=== PATIENT | female | born 1965 | race Caucasian/White ===

== ENCOUNTER 2017-10-09 00:42 | Day surgery (SDC) | payer MEDICAID ==
[2015-11-27 15:57] VITALS: Ht 165.1 cm; Wt 57.2 kg
[~2017-10-09] VITALS: Ht 165.1 cm; Wt 57.2 kg
[~2017-10-09 00:42] MED LIST: ALB18R INH; CIPR-344 PO; CIT20 PO; CITA-155 PO; CITA-156 PO; CITA10SO7 PO; COUGH; GOLYTE PO; HYDR-4309 PO; HYDR25SU34 RC; LEVO750T27 PO; LOR5/325 PO; METH-543 PO; MULT-1335 PO; MULT1TAB64 PO; NAPR-1043 PO; NAPR220C12 PO; OMEP-137 PO; OMEP-218 PO; ONDA4TAB9 PO; PER PO; PRE20 PO; PROM-110 PO; PROM25S PR; RAN150 PO; RANI-315 PO; RANI-324 PO; TRAM-420 PO; TRAZ-133 PO; ZOLM2.5 PO
[2017-10-09] MEDS ORDERED: NORMOSOL R SOLN(*) 1000 ML BAG 1,000 ML IV PRN (09:05)
[2017-10-09] MEDS ORDERED: MIDAZOLAM 2 MG/2 ML VIAL IVP PRN (09:05)
[2017-10-09] MEDS ORDERED: LIDOCAINE/SOD BICARB 8.4% SYR ID ONE (09:05)
[2017-10-09] MEDS: FAMOTIDINE 20 MG TAB PO ONE ×2 (09:05→12:37)
[2017-10-09] MEDS ORDERED: fentaNYL CITR 100 MCG/2 ML AMP ONE (12:13)
[2017-10-09] MEDS ORDERED: ONDANSETRON 4 MG/2 ML VIAL ONE (12:13)
[2017-10-09] MEDS ORDERED: DEXAMETHASONE SOD 4 MG/ML VIAL ONE (12:13)
[2017-10-09] MEDS ORDERED: LIDOCAINE MPF 1% 5 ML VIAL ONE ×2 (12:13→14:19)
[2017-10-09] MEDS ORDERED: PROPOFOL EMUL(*) 10MG/ML 20 ML 20 ML ONE ×3 (12:13→14:19)
[2017-10-09 12:34] VITALS: BP 131/76
[2017-10-09 12:50] LABS: PLATELET COUNT, AUTOMATED 191 K/uL (150-450)
[2017-10-09] MEDS ORDERED: ROPIVACAINE 0.5% 20 ML VIAL ONE (13:36)
[2017-10-09] MEDS ORDERED: GELATIN SPONGE SZ 100 ONE (13:37)
[2017-10-09] MEDS ORDERED: KETAMINE HCL 200 MG/20 ML MDV ONE (14:00)
[2017-10-09] MEDS ORDERED: DOCU-416 PO (14:46)
[2017-10-09] MEDS ORDERED: OXYC-854 PO (14:46)
--- NOTE | 2017-10-09 14:51 | Short(Outpt) Discharge Summary ---
Discharge Summary Reason for Hosp/Final Diag: (1) Anal fissure Status: Chronic Hospital Course & Plan: Colonoscopy, LIS, and anal skin tag excision completed without problems. (2) Skin tag of anus Status: Chronic (3) Family history of colorectal cancer Departure Discharge to: Home, Self Care Discharge Instructions Home Meds Active Scripts Docusate Sodium (COLACE) 100 Mg Capsule, 1 CAP PO BID, #30 CAPSULE 0 Refills Prov:REJI MCCARTHY MD 10/09/17 Oxycodone Hcl/Acet 5/325 Mg (ENDOCET 5-325 TABLET) 1 Each Tablet, 1-2 TAB PO Q4H Y for PAIN, #30 TAB 0 Refills Prov:REJI MCCARTHY MD 10/09/17 Peg/Electrolytes (GOLYTELY SOLUTION) 4,000 Ml Soln, 1 GAL PO ONCE, #1 GAL 0 Refills Prov:REJI MCCARTHY MD 09/19/17 Reported Medications Ranitidine Hcl (ZANTAC) 150 Mg Tablet, 150 MG PO BID, TAB 09/19/17 Omeprazole (OMEPRAZOLE) 20 Mg Tablet.dr, 20 MG PO QDAY, TAB 09/19/17 Albuterol Sulfate (VENTOLIN HFA) 18 Gm Inh, 2 PUFF INH Q4-6H Y for SHORTNESS OF BREATH, INH 09/19/17 Naproxen Sodium (ALEVE) 220 Mg Capsule, 220 MG PO BID, CAPSULE 09/19/17 Multivitamin (MULTI VITAMIN DAILY) 1 Each Tablet, 1 EACH PO QDAY, TAB 09/19/17 Citalopram Hydrobromide (CELEXA) 10 Mg Tablet, 5 MG PO QDAY, #5 TAB 09/19/17 Discontinued Reported Medications Promethazine Hcl (PROMETHAZINE HCL) 25 Mg Tablet, 25 MG PO Q4H Y for NAUSEA/ VOMITING, TAB 09/19/17 Hydrocortisone Acetate (HYDROCORTISONE ACETATE) 25 Mg Supp.rect, 25 MG RC TID, SUPP.RECT 09/19/17 Follow up Referrals: General Surgery - 10/28/17 @ Surgery, General with Reji Mccarthy Md You have a follow up appointment scheduled with Dr. Mccarthy on 10/28/17, at 3:45pm. Diet: Regular Activity: As Tolerated Special Instructions: There is a roll of foam tucked in your anal canal to help with bleeding from the incisions. This will come out usually in the next 24-48 hours after surgery and will look like bloody foam and blood clots in the toilet; this is to be expected. You can take hot baths to help sooth your bottom and use the pain medication I've prescribed as needed for anal pain but be aware that it can cause (or make worse) constipation. Take the stool softener twice every day until your bowels are back to normal and you no longer require the pain medication. You can noris use aleve OR ibuprofen for additional pain relief. REJI MCCARTHY MD Oct 09, 2017 14:51
--- NOTE | 2017-10-09 14:57 | Post Operative Progress Note ---
Post Operative Progress Note Date: Oct 09, 2017 Time: 14:51 Surgeon: Marissa Dictation number: [id number] Anesthesia: LMA by Dr. Mcginnis Pre-Op Diagnosis: FH CRC Anal fissure Anal skin tags Post-Op Diagnosis: MILLIE Findings: C/W dx Normal colonoscopy, excellent prep Procedure(s): Colonoscopy LIS Excision of anal skin tags Specimen Removed:(May be N/A): None Complications: None Fluids: See anesthesia record Estimated Blood Loss: Minimal Date OP Note Dictated: Oct 09, 2017 Time OP Note Dictated: 14:52 REJI MCCARTHY MD Oct 09, 2017 14:57
[2017-10-09 15:27] VITALS: BP 126/86
[2017-10-09 15:29] VITALS: BP 145/90
--- NOTE | 2017-10-09 22:16 | OPERATIVE REPORT 1 ---
EVENT DATE: October 09, 2017 SURGEON: Jaskaran Ann MD ANESTHESIOLOGIST: Kd Mcginnis MD ANESTHESIA: LMA. PREOPERATIVE DIAGNOSES 1. Family history of colon cancer. 2. Anal fissure. 3. Anal skin tags. POSTOPERATIVE DIAGNOSES 1. Family history of colon cancer. 2. Anal fissure. 3. Anal skin tags. PROCEDURES PERFORMED 1. Colonoscopy. 2. Lateral internal sphincterotomy. 3. Excision of anal skin tags. COMPLICATIONS None. CONDITION Stable. BLOOD LOSS Minimal. FINDINGS This patient's colonoscopy was normal. The prep was excellent. There were no polyps, cancers, inflammation, or other abnormalities. She had a posterior midline anal fissure and posterior skin tags, likely related to the fissure. INDICATIONS This is a 52-year-old female who was referred to my office with chronic constipation and bright red blood per rectum as well as anal pain. She reported her father had colon cancer in his 60s. She never had a colonoscopy, so she was requesting a colonoscopy for screening in addition to the workup of her symptoms, but she was also requesting for me to look in her anus and determine the cause of her pain and bleeding and deal with it, which included as I described to her in clinic possibly an internal sphincterotomy and removal of the skin tags. DESCRIPTION OF PROCEDURE The patient was brought to the operating room and placed supine on the operating table. LMA anesthesia was administered. A digital rectal exam was completed which revealed the anal skin tags and the posterior fissure, but there was no gross blood and no other abnormalities. The colonoscope was set up and tested to make sure it was completely functional. It was well lubricated and inserted into the rectum through her anus. I advanced the scope with no problem all the way through to her cecum and also to the terminal ileum. I slowly withdrew the scope as I looked at all mucosal surfaces for any abnormalities. The prep was excellent, and I was able to look at the entire colon without any problems. When the scope was back in the rectum, I retroflexed it and looked at the distal rectum and the proximal anal canal, and this was normal. I then straightened out the scope, desufflated the colon, and removed the scope from her body. She was then placed in candy cane stirrups, and the perianal skin was prepped and draped in a sterile fashion. I then stuck an anal speculum in and felt the internal sphincter groove. I made a radial incision over the internal sphincter groove and then used the hemostat to create the plane between the internal and external sphincters. I got above the internal sphincter and then divided the sphincter with electrocautery. I made this wound hemostatic with pressure. I anesthetized the entire perianal area with 0.5% ropivacaine plain and then closed the defect with a running 3-0 chromic suture. There were some skin tags in the posterior midline that I easily excised with electrocautery. I then packed the anal canal with Gelfoam, and then gauze was placed in her buttock area. She was placed in mesh panties. She was awakened, LMA removed, and transported to the recovery room in stable condition having tolerated the procedure without any apparent problems. PRIYA
== END 2017-10-09 15:27 | disposition home or self-care (01) ==
LOC: OR 00:42
PROVIDERS: ATTEND Surgery
DX: K60.2 Anal fissure, unspecified (principal); K64.4 Residual hemorrhoidal skin tags; Z80.0 Family history of malignant neoplasm of digestive organs
CPT/HCPCS: 00811; 36415; 45378; 46230; 85025; J1100; J2001; J2405; J2704; J2795; J3010; J3490